=== PATIENT | female | born 2000 | race Asian ===

== ENCOUNTER 2020-06-08 17:51 | Outpatient (CLI) | payer OTHER | END 2020-06-08 23:59 | disposition home or self-care (01) | LOC: RAD 17:51 | PROVIDERS: ATTEND Family Medicine | DX: Z02.9 Encounter for administrative examinations, unspecified (principal) ==

== ENCOUNTER → 2020-06-10 | Outpatient (CLI) | payer OTHER | END | disposition home or self-care (01) | LOC: RAD 14:09 | PROVIDERS: ATTEND Family Medicine | DX: D16.21 Benign neoplasm of long bones of right lower limb (principal); D16.22 Benign neoplasm of long bones of left lower limb ==

== ENCOUNTER 2020-08-08 18:22 | Emergency (ER) | payer OTHER ==
[~2020-08-08] VITALS: Ht 152.4 cm; Wt 51.3 kg
[2020-08-08 18:32] VITALS: BP 144/87
--- NOTE | 2020-08-08 19:17 | NUR ---
JUMPED INTO SHALLOW PART OF [place] TODAY. NOW UNABLE TO BEAR WEIGHT TO RIGHT HEEL, ALSO WITH MODERATE LACERATION TO HEEL CMS INTACT
--- NOTE | 2020-08-08 20:08 | NUR ---
ALL RESULTS ARE BACK AT THIS TIME. CHART UP FOR RECHECK.
--- NOTE | 2020-08-08 21:07 | NUR ---
AUDIT SPEC AT BEDSIDE FOR SPLINT AND CRUTCHES.
== END 2020-08-08 21:11 | disposition home or self-care (01) ==
LOC: ED 19:00
DX: S91.311A Laceration without foreign body, right foot, initial encounter (principal); X58.XXXA Exposure to other specified factors, initial encounter; Y93.89 Activity, other specified; Y92.828 Other wilderness area as the place of occurrence of the external cause; Y99.8 Other external cause status
CPT/HCPCS: 99283